=== PATIENT | male | born 1980 | race Caucasian/White ===

== ENCOUNTER 2016-11-16 11:22 | Emergency (ER) | payer MEDICAID, OTHER ==
[~2016-11-16] VITALS: Ht 165.1 cm; Wt 72.5 kg
[2016-11-16 11:31] VITALS: Ht 165.1 cm; Wt 72.5 kg
--- NOTE | 2016-11-16 11:50 | ERD ---
ER Documentation Chief Complaint Date/Time DATE: 11/16/16 TIME: 11:47 Chief Complaint R PINKY, HAND PAIN S/P FALL AT WORK YESTERDAY HPI This is a 36-year-old male who presents to the emergency department today complaining of right hand pain after falling this morning. States his pinky finger bent backwards. Patient states he was standing on the corner at [employer] waiting for work when he fell. Denies any previous trauma. States he is not taking any medication for the pain ROS All systems reviewed and are negative except as per history of present illness. Medications Home Meds Active Scripts Acetaminophen* (Tylophen*) 500 Mg Capsule, 1 CAP PO Q6H Y for PAIN AND OR ELEVATED TEMP, #30 CAP Prov:ANAMIKA TAVARES PA-C 11/16/16 Naproxen* (Naprosyn*) 500 Mg Tablet, 500 MG PO BID Y for PAIN AND/OR INFLAMMATION, #30 TAB Prov:ANAMIKA TAVARES PA-C 11/16/16 Hydrocodone/Acetaminophen ([place] 5-325 Tablet) 1 Each Tablet, 1 TAB PO Q6H Y for PAIN, #12 TAB Prov:ANAMIKA TAVARES PA-C 11/16/16 Physical Exam Vitals Vital Signs Date Time Temp Pulse Resp B/P Pulse Ox O2 Delivery O2 Flow Rate FiO2 11/16/16 11:31 97.9 72 18 135/79 100 Physical Exam Const: No acute distress Head: Atraumatic Eyes: Normal Conjunctiva ENT: Normal External Ears, Nose and Mouth. Neck: Full range of motion..~ No meningismus. Resp: Clear to auscultation bilaterally Cardio: Regular rate and rhythm, no murmurs Skin: No petechiae or rashes MSK: Right hand with no obvious deformity. Mild effusion. Tenderness palpation over fourth and fifth metacarpals. Full active range of motion of wrist. No scaphoid tenderness. Pulses 2+. Distal neurovascularly intact. Good cap refill Neur: Awake and alert Psych: Normal Mood and Affect Results 24 hrs Current Medications Medications (Trade) Dose Ordered Sig/Odilon Route PRN Reason Start Time Stop Time Status Last Admin Dose Admin Acetaminophen/ Hydrocodone Bitart ([place] (5/325)) 1 tab ONCE ONCE PO 11/16/16 12:00 11/16/16 12:01 DC DIAGNOSTIC IMAGING REPORT Patient: VIRGILIO GARDNER : 1980 Age: 36 Sex: M MR #: [id number] DOS: 11/16/16 0000 Ordering MD: ANAMIKA TAVARES PA-C Location: [facility] Room/Bed: PROCEDURE: XR Right Hand CLINICAL INDICATION: Trauma, fall TECHNIQUE: PA, oblique, and lateral radiographs were submitted. COMPARISON: None FINDINGS: Osseous structures: A fracture is seen to the distal right fifth metacarpal neck in which the distal fragment is moderately angulated ventrally. The remaining visualized osseous elements appear intact. Joint spaces: are well maintained, with no significant spurring, erosion or joint effusion evident. Soft tissues: appear unremarkable. IMPRESSION: Fracture involving the distal right fifth metacarpal neck with moderate ventral angulation of the distal fragment. Physician Csaey Date Time Electronically viewed and signed by Jesús Neal Physician on 11/16/2016 13:23 RH/ CC: ANAMIKA TAVARES PA-C Procedures/MDM This a right-handed 36 -year-old male presents to the emergency department today complaining of right hand pain after falling while waiting for work at [employer] this morning. Patient has diffuse swelling over the dorsal aspect of his right hand. He is tender to palpation over his fourth and fifth metacarpals. Given this trauma and physical exam I did obtain images . Per the radiology report images of the right hand shows a fracture involving the distal right fifth metacarpal neck with moderate ventral angulation of the distal fragment. Soft tissues are unremarkable. This is likely the source of the patient's pain. He is afebrile and otherwise well-appearing. Low suspicion for septic joint or gout. Patient was given [place] here in the emergency department. He will be given a prescription for short course of [place] and Naprosyn and Tylenol for home. Patient was placed in a splint and given a sling to wear for comfort. He was distal neurovascular intact pre-and post splint application. At this time the patient is stable for discharge and outpatient management. Patient should follow up with their PCP in the next 1-2 days for referral to medical laboratory specialist. I have given patient a list of referrals as well as [facility]. They may return to the emergency department sooner for any persistent or worsening of symptoms. Patient understood and agreed with the plan. Departure Diagnosis: Primary Impression: Hand fracture, right Encounter type: initial encounter Fracture type: closed Qualified Code: S62.91XA - Hand fracture, right, closed, initial encounter Condition: Fair ANAMIKA TAVARES PA-C Nov 16, 2016 11:50
[2016-11-16] MEDS: HYDROCODONE/APAP (5/325) TAB PO ONE ×2 (11:54→12:19)
--- NOTE | 2016-11-16 13:23 | RADRPT ---
PROCEDURE: XR Right Hand CLINICAL INDICATION: Trauma, fall TECHNIQUE: PA, oblique, and lateral radiographs were submitted. COMPARISON: None FINDINGS: Osseous structures: A fracture is seen to the distal right fifth metacarpal neck in which the distal fragment is moderately angulated ventrally. The remaining visualized osseous elements appear intac t. Joint spaces: are well maintained, with no significant spurring, erosion or joint effusion evident. Soft tissues: appear unremarkable. IMPRESSION: Fracture involving the distal right fifth metacarpal neck with moderate ventral angulati on of the distal fragment. Physician Casey Date Time Electronically viewed and signed by Physician Casey on 11/16/2016 13:23 /
[2016-11-16] MEDS ORDERED: HYDR-906 PO (13:47)
[2016-11-16] MEDS ORDERED: NAPR-260 PO (13:47)
[2016-11-16] MEDS ORDERED: ACET500C5 PO (13:47)
== END 2016-11-16 14:31 | disposition home or self-care (01) ==
LOC: FTE 11:22
DX: S62.336A Displaced fracture of neck of fifth metacarpal bone, right hand, initial encounter for closed fracture (principal); W01.0XXA Fall on same level from slipping, tripping and stumbling without subsequent striking against object, initial encounter; Y92.9 Unspecified place or not applicable
CPT/HCPCS: 29125; 73130; Z7502